=== PATIENT | female | born 1990 | race Caucasian/White ===

== ENCOUNTER 2023-03-07 10:55 | Outpatient (CLI) | payer OTHER, SELFPAY ==
--- NOTE | 2023-03-07 11:00 | CRLHL7_ITS ---
For Patients: As a result of the Cures Act, medical imaging exams and procedure reports are released immediately into your electronic medical record. You may view this report before your referring provider. If you have questions, please contact your health care provider. INDICATION: First trimester scan, establish dates. COMPARISON: None. TECHNIQUE: Real-time medina-scale imaging of the pelvis was performed. FINDINGS: Sonographic imaging demonstrates a single living intrauterine gestation. The embryo demonstrates a regular cardiac rate measuring 159 beats per minute. The embryo`s crown-rump length measurement of 2.1 cm corresponds to a gestational age of 8 weeks 5 days with a sonographic due date of 10/12/2023. There is a normal-appearing yolk sac. There are no gross abnormalities noted within the embryo at this early state of development. The gestational sac has a normal appearance. There is an inferior perigestational hemorrhage measuring 15 x 4 x 5 millimeters. The amount of fluid within the sac appears appropriate for gestational age. The cervix is closed. The myometrium appears normal. The ovaries are of normal size. Corpus luteal cyst right ovary. Simple cyst left ovary. There are no suspicious fluid collections noted in the cul-de-sac. IMPRESSION: Single living intrauterine with sonographic gestational age 8 weeks 5 days and sonographic due date 10/12/2023. Lower uterine segment subchorionic hemorrhage measuring 1.5 x 0.4 x 0.5 cm. Dictated by Lev Bear MD @ 03/07/2023 1:15:44 PM (Electronically Signed)
== END 2023-03-07 10:56 | disposition home or self-care (01) ==
LOC: US 10:56
PROVIDERS: Visit Provider Physician Assistant
DX: Z34.91 Encounter for supervision of normal pregnancy, unspecified, first trimester (principal); O20.9 Hemorrhage in early pregnancy, unspecified; Z3A.08 8 weeks gestation of pregnancy
CPT/HCPCS: 76817; 86592; 86703; 86704; 86706; 86762; 86787; 86803; 86850; 86900; 86901; 87086; 87340; 87491; 87591

== ENCOUNTER 2023-07-23 08:35 | Outpatient (CLI) | payer OTHER, SELFPAY | END 2023-07-23 08:36 | disposition home or self-care (01) | LOC: NFLDREF 08-07 19:16 | PROVIDERS: Visit Provider Advanced Practice Midwife | DX: Z34.03 Encounter for supervision of normal first pregnancy, third trimester (principal) | CPT/HCPCS: 86592 ==

== ENCOUNTER 2023-07-27 08:35 | Outpatient (CLI) | payer OTHER, SELFPAY | END 2023-07-27 08:36 | disposition home or self-care (01) | LOC: NFLDREF 07-31 20:48 | PROVIDERS: Visit Provider Advanced Practice Midwife | DX: R73.09 Other abnormal glucose (principal) | CPT/HCPCS: 82951; 82952 ==

== ENCOUNTER 2023-08-17 07:11 | Outpatient (CLI) | payer OTHER, SELFPAY ==
--- NOTE | 2023-08-17 07:15 | CRLHL7_ITS ---
For Patients: As a result of the Century Cures Act, medical imaging exams and procedure reports are released immediately into your electronic medical record. You may view this report before your referring provider. If you have questions, please contact your health care provider. INDICATION: Third trimester scan, evaluate growth. COMPARISON: 03/07/2023. No other priors available. TECHNIQUE: Real time medina scale imaging of the fetus was performed. FINDINGS: Sonographic imaging demonstrates a single living intrauterine gestation. Fetus demonstrates a regular cardiac rate of 142 beats per minute. Fetus has a vertex position. The placenta lies anteriorly. Amniotic fluid volume appears normal and there is a single deepest vertical pocket: 7.5 cm. The estimated weight is 1780gm which lies at the 24th %. BPD 63rd percentile. HC 81st percentile. AC is 23rd percentile. FL 12th percentile. The HC/AC ratio measures 1.15 range (0.96-1.13). No choroid plexus cyst. IMPRESSION: Sonographic gestational age 32 weeks 2 days and a sonographic due date 10/10/2023. Good correlation with dates. Normal interval growth. Estimated weight 24th percentile. Abdominal circumference 23rd percentile. Dictated by Lev Bear MD @ 08/19/2023 6:44:37 AM (Electronically Signed)
== END 2023-08-17 07:12 | disposition home or self-care (01) ==
LOC: US 07:12
PROVIDERS: Visit Provider Advanced Practice Midwife
DX: Z34.93 Encounter for supervision of normal pregnancy, unspecified, third trimester (principal); Z3A.32 32 weeks gestation of pregnancy
CPT/HCPCS: 76816

== ENCOUNTER 2023-09-14 13:29 | Outpatient (CLI) | payer OTHER, SELFPAY | END 2023-09-14 13:30 | disposition home or self-care (01) | LOC: NFLDREF 09-17 10:21 | PROVIDERS: Visit Provider Advanced Practice Midwife | DX: Z34.93 Encounter for supervision of normal pregnancy, unspecified, third trimester (principal); Z3A.36 36 weeks gestation of pregnancy | CPT/HCPCS: 87081; 87653 ==

== ENCOUNTER 2023-09-23 04:03 | Inpatient (IN) | payer OTHER, SELFPAY ==
[2023-09-23] VITALS (20 sets, daily range): BP systolic 117–134; BP diastolic 69–78; PULSE 70–95; RESP 16; TEMP 36.4–37; O2SAT 95; BMI 32.5
[2023-09-23 04:56] LABS: Amnisure Rom* POSITIVE
--- NOTE | 2023-09-23 07:24 | P.LDBA_ITS ---
Subjective History of Present Illness Date Seen: 09/23/23 Narrative: Augustin is being admitted to Labor and Delivery for SROM at 0230 on 09/23/23, confirmed by [facility] on admission. She is a 33 year old at 37.2 weeks gestation. Her full history and physical was dictated by Dr. Hartman on 09/21/23. Please see this for details. She is currently comfortable feeling only occasional tightening, continues to leak small amounts of clear fluid. Specific Issues/Plans : Ant 1. 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 Immunology (did not accept referral) and [facility] referral sent. [facility] appointment 05/15 for consult and Level II: No concerns, actively treat infections during Level II: SIUP, Bilateral choroid plexus cyst, no other aneuploidy markers visualized. Anterior placenta. Normal amniotic fluid. Normal growth consistent gestational age. Consider consult for further work-up/evaluation if patient desires. 2. Genital warts. Have been persistent despite treatment in the past. 3. Hx anxiety. 4. Bilateral choroid plexus cyst (3 mm left, 2 mm right) No follow-up needed Growth US at 32 weeks: EFW 32%ile, no cyst vistualized 5. Failed 1hr GTT 148. Passed all 3 hour values COVID: declined 03/07/2023 Flu: declined 03/07/2023 TDAP: 08/03/2023 32wk Mental Health: 34wk Hgb:13.1 OB - Problem Based A/P Additional Plan (1) SROM (spontaneous rupture of membranes): Status: Acute (2) 37 weeks gestation of : Status: Acute Plan Assessment:?? at 37.2 weeks gestation?? GBS negative? Patient is not in labor at this time?? Labor type: SROM without onset of painful contractions? Category 1 FHR pattern.? complicated by: IgA deficiency Genital warts, persistent despite treatment in past Hx anxiety Failed 1 hr GTT, passed 3hr GTT Plan:?? * ?Admit to L & D? * IV access: NA a this time * Monitoring per policy: intermittent? * Candidate for analgesia of choice.? Planning unmedicated or nitrous oxide for pain management * Desires waterbirth.? Consent signed and Hep C negative * Expectant management at this time Reviewed risks and benefits of no intervention at this time. Plan to reevaluate labor progress around 12 hrs post rupture unless change in labor or concerns before this time.? * Patient encouraged to reposition and ambulate to promote physiologic labor and . * Anticipate ? Delivery/Labor/Induction Plan Plan: expectant management OB Exam Physical Exam Vital signs: Temp Pulse BP Pulse Ox 98.6 F 85 120/73 95 09/23/23 04:09 09/23/23 07:19 09/23/23 07:19 09/23/23 04:09 Narrative: Vitals Reviewed Constitutional:? Alert and oriented x3 HEENT:? Normocephalic, atraumatic Neck:? Supple Lungs:? Clear to auscultation bilaterally Heart:? Regular rate and rhythm, no murmur, rub or gallop Abdomen:? Soft, nontender, and gravid. Vertex by Darell's, confirmed with cervical exam. Extremities:? No edema or erythema Cervix: 4 cm/60%/-3 station/vertex per RN NST: 145 bpm/moderate variability/+accelerations/-decelerations/rare mild contractions Detailed Labor and Delivery Exam Patient Gravid: Yes
--- NOTE | 2023-09-23 14:17 | PM.OBPNL ---
Subjective Date Seen: 09/23/23 Narrative: Augustin is feeling occasional mild contractions, she continues to leak clear fluid. Discussed R/B/A of continuing to wait for labor, pumping to try to stimulate labor or starting Pitocin. She would like to try pumping at this time and then may consider Pitocin. She remains afebrile. Objective Exam: VSS, afebrile General Appearance:? Calm, cooperative. ?No acute distress. ? Psychiatric Exam: Alert and oriented, appropriate affect Abdomen: Gravid Ctx: ?Q 3-5 min apart. ?Mild ? ? FHTs: ?Baseline: 135. ? ? Variability: modereate. ?Accels: +. ? ?Decels: ?-. SVE: deferred at this time Membranes: ?SROM X 12 hours Vital Signs: Last Vital Signs Temp 98 F 09/23/23 14:00 Pulse 85 09/23/23 14:03 Resp 16 09/23/23 13:12 BP 117/69 09/23/23 14:03 Pulse Ox 95 09/23/23 04:09 Plan Plan: Assessment:?? at 37.2 weeks gestation?? GBS neg Patient is not in labor at this time? Labor type: SROM without onset of contractions Category 1 FHR pattern.? complicated by: IgA deficiency Genital warts, persistent despite treatment in past Hx anxiety Failed 1 hr GTT, passed 3hr GTT Labor complicated by: SROM without onset of contractions? Plan:?? Pt prefers to pump intermittently to try to stimulate labor. Reviewed IV Pitocin risks and benefits, pt is open to use at later time if pumping is ineffective Continue with routine intrapartum cares as ordered.?? Patient encouraged to move and change positions to promote physiologic labor and .?? Nonpharmacologic comfort measures per patient preference. Candidate for analgesia of choice if desired. Patient planning waterbirth Anticipate progress to NVD. ?
[2023-09-23] MEDS: LACTATED RINGERS 1000 ML 1,000 ML 125 ML IV (16:51)
[2023-09-23] MEDS: OXYTOCIN 30 unit/500 ML in NS 30 UNIT/500 ML BAG IVPB (16:52)
--- NOTE | 2023-09-23 20:05 | PM.OBPNL ---
Subjective Date Seen: 09/23/23 Narrative: ?Augustin is coping well with labor pain/contractions, she states she can feel them more at this time. She is not breathing through contractions and rates some 3-4/10. She was started on IV Pitocin per protocol around 1700. ?Ant is with her for support. ? Objective Exam: VSS, afebrile General Appearance:? Calm, cooperative. ?No acute distress. ? Psychiatric Exam: Alert and oriented, appropriate affect Abdomen: Gravid Ctx: ?Q 3 min apart. ?Mild ? ? FHTs: ?Baseline: 145. ? ? Variability: moderate. ?Accels: +. ? ?Decels: ?-. SVE: deferred Membranes: ?SROM ? X 17 hours Vital Signs: Last Vital Signs Temp 97.8 F 09/23/23 19:46 Pulse 77 09/23/23 19:46 Resp 16 09/23/23 18:58 BP 119/69 09/23/23 19:46 Pulse Ox 95 09/23/23 04:09 Plan Plan: Assessment:?? at 37.2 gestation?? GBS neg Patient is currently comfortable with mild contractions?? Labor type: Augmented, Early labor? Category 1 FHR pattern.? complicated by: IgA deficiency Genital warts, persistent despite treatment in past Hx anxiety Failed 1 hr GTT, passed 3hr GTT Labor complicated by: SROM without onset of contractions? Plan:?? Continue labor augmentation with IV Pitocin per protocol Continue with routine intrapartum cares as ordered.?? Patient encouraged to move and change positions to promote physiologic labor and .?? Nonpharmacologic comfort measures per patient preference. Candidate for analgesia of choice if desired. Patient planning waterbirth Anticipate progress to NVD. ?
[2023-09-24] VITALS (16 sets, daily range): BP systolic 100–132; BP diastolic 58–95; PULSE 71–108; RESP 16–18; TEMP 36.6–37; O2SAT 98–99
[2023-09-24] MEDS: LACTATED RINGERS 1000 ML 1,000 ML 125 ML IV (00:03)
--- NOTE | 2023-09-24 00:53 | PM.OBPNL ---
Subjective Date Seen: 09/24/23 Narrative: ?Augustin is coping well with labor pain/contractions. ?Ant is with her for support. ?She would like to continue with breathing, repositioning and relaxation for comfort and pain management.?She has been more uncomfortable with contractions for the last 1.5 hours rating contractions a 8/10. Requested a cervical exam, she was 5/-2 with forebag. Presented the option of rupturing this now or continuing to labor without rupturing. She continues on IV Pitocin per protocol. They discussed this and decided on rupture. Small amount of clear fluid after rupture of forebag, cervix then a stretchy 6cm. She requested to try water therapy at this time planning on getting into the smaller tub now. Objective Exam: VSS, afebrile General Appearance:? Calm, cooperative. ?No acute distress. ? Psychiatric Exam: Alert and oriented, appropriate affect Abdomen: Gravid Ctx: ?Q 2-3 min apart. ? ?Moderate ? FHTs: ?Baseline: 140. ? ? Variability: moderate. ?Accels: +. ? ?Decels: ?-. SVE: /-2 Membranes: ?SROM X 22.5 hours Vital Signs: Last Vital Signs Temp 98 F 09/23/23 22:53 Pulse 87 09/23/23 22:53 Resp 16 09/23/23 18:58 BP 133/73 09/23/23 22:53 Pulse Ox 95 09/23/23 04:09 Contractions Pitocin Rate (mU/min): 12 Assessment Amniotic Membrane Status: SROM Plan Plan: Assessment:?? at 37.2 gestation?? GBS neg Patient is currently comfortable with mild contractions?? Labor type: Augmented, Early labor? Category 1 FHR pattern.? complicated by: IgA deficiency Genital warts, persistent despite treatment in past Hx anxiety Failed 1 hr GTT, passed 3hr GTT Labor complicated by: SROM without onset of contractions? Plan:?? Rupture of forebag performed with patient consent for clear fluid Continue IV Pitocin per protocol. Pt to get into smaller tub at this time Continue with routine intrapartum cares as ordered.?? Patient encouraged to move and change positions to promote physiologic labor and .?? Nonpharmacologic comfort measures per patient preference. Candidate for analgesia of choice if desired. Patient planning waterbirth Anticipate progress to NVD. ?
[2023-09-24] MEDS: OXYTOCIN 30 unit/500 ML in NS 30 UNIT/500 ML BAG 300 UNIT IVPB (04:45)
--- NOTE | 2023-09-24 06:35 | P.GYNPRC_ITS ---
Procedure Note Time Seen by Provider: 06:00 Date of procedure: 09/24/23 Will [facility] bill your pro fee for this procedure?: Yes Pre-op diagnosis: 3rd degree extension of RML episiotomy s/p vaginal delivery. Post-op diagnosis: 2nd degree RML episiotomy with right vaginal sulcus extension. Procedure: Repair of 2nd degree RML episiotomy with right vaginal sulcus extension. Excision of vulvar skin tag. Anesthesia: local (25 mL 1% lidocaine plain) Complications: None. Surgeon: Dia Varela MD Estimated blood loss (mL): 10 (for the repair) Pathology: specimen obtained, sent to pathology (vulvar skin tag) Condition: stable Disposition: floor Findings: 2nd degree RML episiotomy with right vaginal sulcus extension. Procedure Description: Verbal consent obtained for exam and repair. Sibley of vaginal sulcus tear identified and vaginal mucosa reapproximated in a running locking fashion with 3-0 chromic. The muscles over the sphincter capsule were reapproximated separately with 2 interrupted sutures of 3-0 vicryl to restore normal anatomic configuration. The remainder of the repair was completed in the usual fashion with the 3-0 chromic in the usual layered fashion. The right vulvar skin tag was excised with scissors and the defect closed with 3-0 chromic. The patient tolerated the procedure well. Sponge and needle counts were correct.
--- NOTE | 2023-09-24 06:35 | W.PM.OBVAGDE ---
OB Procedure Vag Delivery Mother Details Mother Details: The patient is a 33 year-old, 1, Para 0, admitted on 09/23/23 at 37.2 weeks gestation with SROM at home on 09/23/23 at 0230. : 1 Para: 1 Weeks Gestation: 37.3 Admission Date: 09/23/23 Additional Details Amniotic Membrane Status: SROM Amniotic Membrane Rupture Date: 09/23/23 Amniotic Membrane Rupture Time: 02:30 Amniotic Membrane Fluid Description: Clear Analgesia/Anesthesia Type: Local (for repair) and Nitrous Oxide Waterbirth: No Pitcoin: Yes Intrapartal Events: Labor Augmentation Delivery augmentation: rupture of membranes Labor Onset: 00:49 Complete: 02:35 Pushin:40 Heart: heart tones during second stage were continuously monitored Category 2, with a period of time where the monitor was not recording FHR but RN and CNM both were able to audibly hear FHR 145-155. The last 20 minutes of pushing FHR bettye to 180-200's with a deceleration to the 60's just before delivery. Delivery Details Delivery Date: 09/24/23 Delivery Time: 04:43 Route of delivery: Infant Gender: Female Infant Viability: Alive; Heart Rate Present Position at Delivery: OA Delivery Details: 33 y.o?at 37.3 weeks.? Augustin was admitted with SROM since 09/23/23 at 0230. She was not feeling contractions other than occasional tightening and leaking clear fluid. She preferred to wait for labor initially then after 16 plus hours since SROM she consented to IV Pitocin per protocol. After approximately 4 hours on IV Pitocin she had not made significant change and was found to have a forebag. She consented to rupture of forebag which was then performed for clear fluid. She progressed normally and then requested to get in the waterbirth tub, recommended she use her regular tub until having stronger pressure in pelvis or feeling like pushing. She entered the tub around 0230 and began to feel like pushing. She became complete at 0235.??She pushed in multiple positions effectively.??? At approximately 0420 FHR was noted to be 180 and there was difficulty tracing. Augustin was pushing well but there was a thick band of perineal tissue which was preventing the head to pass. Decision was made to get out of the tub and monitor was adjusted showing FHR 180-200. Recommended an episiotomy at this time for concerns for well being. Patient consented and this was performed after injection 1% lidocaine to the area, she pushed well with the next contraction but episiotomy not deep enough so additional cut made slightly deeper. The FHR then dropped to the 60's and the patient was instructed to push and she delivered the head. Body delivered without difficulty. ? Spontaneous vaginal delivery at 0443 of?a viable? female .??Delivered in vertex OA position.??Shoulders delivered easily.? Spontaneous cry noted.?? placed on maternal abdomen.??Cord?was clamped and cut after a 5+ minute delay.??Nose and mouth were bulb suctioned.? Shoulder dystocia: no? Nuchal cord: no? Meconium stained?fluid: no? Water : no? ? ? 6 at 1 minute and 9 at 5 minutes.? Weight is pending. ? Placenta delivered spontaneously and?complete?at 0448 with a?3 vessel?cord.?? Bleeding controlled with fundal massage and?pitocin?for AMTSL.? ? Mother and were stable after delivery.? ? Lacerations:? There was a deep sulcal vaginal tear on right extending from the episiotomy site. It appeared that the tear was exposing the anal capsule and potentially torn. Dr. Varela was requested to come to the bedside and evaluate. She did come and felt the capsule was not torn just exposed. She then did the repair and removed a skin tag per patient request. See her note for details. ? Bleeding?post delivery?was: moderate. ?The fundus was firm to palpation.? Blood loss: 300?mL.? Blood loss measurement type: QBL? ? ? Sponge,?lap?and needles counts are correct.? Mother and infant were stable after delivery.? 1 Minute Interval Total Score: 6 5 Minute Interval Total Score: 9 Additional Details Shoulder Dystocia: No Placenta Delivery Time: 04:48 Placental Delivery Description: Spontaneous Delivery repair: Vicryl and Chromic (3.0) Procedure Done: Global Blood Loss: 300 Laceration: Vaginal - 2nd Degree (right sulcal tear) Episiotomy Description: Right Mediolateral Blood Loss Measurement Type: QBL Bakri Used: No Sponge/Need Count Correct: Yes Cord Vessel Description: 3 Vessels Event Summary Status: Mother and infant were stable after delivery. Disposition: floor
[2023-09-24] MEDS: IBUPROFEN 600 MG TABLET PO ×3 (07:33→19:43)
[2023-09-24] MEDS: DOCUSATE SODIUM 100 MG CAPSULE PO (07:33)
[2023-09-24] MEDS: ACETAMINOPHEN 500 MG TABLET 1000 MG PO ×3 (10:17→22:46)
[2023-09-25 01:00] VITALS: BP 102/68; PULSE 93; RESP 16; TEMP 36.6; O2SAT 98
[2023-09-25] MEDS: IBUPROFEN 600 MG TABLET PO ×4 (01:42→20:20)
[2023-09-25] MEDS: ACETAMINOPHEN 500 MG TABLET 1000 MG PO ×4 (05:11→23:22)
[2023-09-25 05:21] VITALS: BP 110/70; PULSE 82; RESP 14; TEMP 36.6; O2SAT 96
[2023-09-25] MEDS: DOCUSATE SODIUM 100 MG CAPSULE PO (08:15)
[2023-09-25 08:17] VITALS: BP 106/68; PULSE 73; RESP 16; TEMP 36.9; O2SAT 97
--- NOTE | 2023-09-25 10:52 | PM.OBPNVD1 ---
OB - PN:Subj Subjective Date Seen: 09/25/23 Narrative: Augustin is a 33 y.o. who was admitted to L & D for SROM.? She had an uncomplicated NVD.? ?? The patient feels well.? The pain is well controlled with current medications.? She has no new complaints.? She is breast feeding and reports things are going well.? the patient has done well.? Vitals have been stable.? She has remained afebrile.? Has a good appetite, is tolerating a general diet.? She is voiding without difficulty.? She is passing gas and has not had a bowel movement.? She is ambulating and denies any dizziness.? Has Small amount of rubra lochia.?She is planning to stay another night in the hospital. OB - PN: Obj Exam Physical Exam: Vital signs: Temp Pulse Resp BP Pulse Ox O2 Del Method 98.4 F 73 16 106/68 97 Room Air 09/25/23 08:17 09/25/23 08:17 09/25/23 08:17 09/25/23 08:17 09/25/23 08:17 09/25/23 08:17 Narrative: GENERAL APPEARANCE:? normal affect, alert, no distress? MOOD:? appropriate? HEENT: normocephalic, neck supple, full ROM? CHEST:? Symmetrical chest wall movement.? Normal respiratory effort.? Clear to auscultation ? HEART:? regular rate and rhythm? ABDOMEN:? soft, non-tender. Uterine fundus is firm, at Umbilicus, Midline and is appropriate for the stage of recovery.? Bowel sounds present.? PERINEUM:? mild edema of the perineum, there is a 2nd degree laceration that is healing well.? EXTREMITIES:? normal and 1+ edema? OB - PN: A/P Delivery Assessment and Plan (1) care and examination immediately after delivery: Status: Acute (2) Lactating mother: Status: Acute (3) SROM (spontaneous rupture of membranes): Status: Acute (4) 37 weeks gestation of : Status: Acute Plan day: 1 Plan: routine care Comments: G 1 P 1 status post uncomplicated NVD??? 1.? Continue route PP cares? 2.? .? May see if desired? 3.? Anticipate discharge home tomorrow?
[2023-09-25 15:45] VITALS: BP 113/67; PULSE 89; RESP 16; TEMP 37.1; O2SAT 98
[2023-09-25 23:49] VITALS: BP 118/71; PULSE 82; RESP 16; TEMP 36.6; O2SAT 96
[2023-09-26] MEDS: IBUPROFEN 600 MG TABLET PO ×2 (02:13→08:23)
[2023-09-26] MEDS: ACETAMINOPHEN 500 MG TABLET 1000 MG PO ×2 (06:22→12:48)
--- NOTE | 2023-09-26 08:05 | PM.OBDSVD1 ---
DS: Providers Provider Date Seen: 09/26/23 Date of admission: 09/23/23 04:03 Primary care physician: Not a Local Provider Admitting Clinician: Paresh Maharaj CNM Attending Physician on discharge: Paresh Maharaj CNM Date of Discharge: 09/26/23 DS: Diagnosis Discharge Diagnosis (1) Lactating mother: Status: Acute (2) care following vaginal delivery: Status: Acute Exam Narrative: Exam Narrative: GENERAL APPEARANCE:? normal affect, alert, no distress? MOOD:? appropriate? CHEST:? clear to auscultation and percussion? HEART:? regular rate and rhythm? ABDOMEN:? soft, non-tender the uterine fundus is U/2 and is appropriate for the stage of recovery. ? PERINEUM:? mild edema of the perineum, there is a RML and 2nd degree extension that is healing well.? EXTREMITIES:? normal and no edema? Const: Vital Signs, click to edit/add: Vital Signs - 24 hr 09/25/23 08:17 09/25/23 15:45 09/25/23 23:49 Temperature 98.4 F 98.8 F 97.8 F Pulse Rate [Pulse Oximeter] 73 89 82 Respiratory Rate 16 16 16 Blood Pressure [Ri ght Arm] 106/68 113/67 118/71 Pulse Oximetry 97 98 96 Oxygen Delivery Me thod Room Air Room Air Room Air Documenting provider has reviewed patient's vital signs: yes OB - DS: Summary Hospital Course Hospital Course: Augustin is a 33 year old G 1 P 1 at 37.3 weeks gestation that was admitted to the Center on 09/23/23 for SROM. She had a vaginal delivery that was complicated by a episiotomy for distress. She delivered a viable female . She is breast feeding and feels things have been going very well. the patient has done well. She is planning condoms for contraception. Peripartum Data delivery method: Vaginal Laceration description: Perineal - 2nd Degree Episiotomy description: Right Mediolateral complications: none Gender: Female Infant Discharge Plan: Home Status at Discharge Functional status at discharge: independent ambulation Overall status at discharge: patient is progressing back to baseline Time Spent with Patient Time attestation: Total time spent providing and/or coordinating discharge services: Discharge Plan Discharge Disposition: Home, Self-Care Date of Admission: 09/23/23 04:03 Attending Provider on Discharge: Melany Unger Primary Care Provider: Provider,Not a Local Condition: Stable Anticipated Discharge Date/Time: 09/26/23 09:00 Discharge Medications: New docusate sodium 100 mg Capsule 100 mg PO DAILY Qty: 90 0RF Rx Instructions: Take 1-2 tablets daily as needed for constipation. ibuprofen 600 mg Tablet 600 mg PO Q6H PRNQty: 30 0RF Continued Adult 50 Plus Probiotic 4 billion cell capsule 4,000 mmu cells PO QDAY magnesium 250 mg tablet 250 mg PO QDAY Classic 28 mg iron- 800 mcg tablet 1 tab PO DAILY Discharge Orders: Discharge Order (Routine); Ordered 09/26/23 Ordered By: Melany Unger Consulting provider completed their portion of the discharge: Yes Patient Education: OB Vaginal/Breast Feeding Additional Instructions: Discharge instructions were reviewed with the patient including signs and symptoms of infection and home going medications.? Lifting Restrictions: 20 pounds for 6? weeks? ?? Do not drive while taking narcotic pain meds.? Off Work or School for 6 weeks.? ?? Symptoms to report to doctor:? -Bleeding that saturates more than one pad per hour? -Passing clots larger than the size of a golf ball? -Pain not relieved by prescribed medication? -Fever above 100.4 degrees Fahrenheit? -A foul vaginal odor? -Difficulty in emotions, mood and functions? -Thoughts of hurting yourself and/or ? -Painful, reddened area in your breast? -Any drainage, redness or tenderness in your IV/epidural site? -Severe headache that doesn't improve after taking medications? -Changes in vision, including temporary loss of vision, blurred vision, and/or light sensitivity? -Upper abdominal pain (usually under ribs on the right side)? -Decrease in urination or painful, frequent urinating? -Chest pain? -Shortness of breath? -Tenderness or pain with redness and/swelling in the calf(s) of your leg? ?? Follow Up in clinic in 2 and 6 weeks.? ?? consultation services are available to all mothers and babies for the first year after delivery.? To make an appointment, please call [phone].? Activity Level: Activity as Tolerated Discharge Diet: Regular Follow Up Appointments: [facility] [Provider Group] Provider,Not a Local [Primary Care Provider] - Forms: MyHealth Info Instructions
[2023-09-26 08:17] VITALS: BP 111/70; PULSE 82; RESP 18; O2SAT 98
[2023-09-26] MEDS: DOCUSATE SODIUM 100 MG CAPSULE PO (11:13)
== END 2023-09-26 13:09 | disposition home or self-care (01) | DRG 806 ==
LOC: OB OUT 08:12 → OB 09-26 08:06
PROVIDERS: Admitting Provider Advanced Practice Midwife; Visit Provider Advanced Practice Midwife
DX: O42.02 Full-term premature rupture of membranes, onset of labor within 24 hours of rupture (principal); D80.2 Selective deficiency of immunoglobulin A [IgA]; Z37.0 Single live birth; O98.32 Other infections with a predominantly sexual mode of transmission complicating childbirth; O70.1 Second degree perineal laceration during delivery; O76 Abnormality in fetal heart rate and rhythm complicating labor and delivery; O99.892 Other specified diseases and conditions complicating childbirth; A63.0 Anogenital (venereal) warts; Z3A.37 37 weeks gestation of pregnancy
CPT/HCPCS: 84112; 85025; 86592; 86850; 86900; 86901; 88304; G0463; A9270; J7120

== ENCOUNTER 2024-03-14 09:30 | Outpatient (RCR) | payer OTHER, SELFPAY | END 2024-06-16 15:55 | disposition home or self-care (01) | PROVIDERS: Visit Provider Midwife | DX: M62.89 Other specified disorders of muscle (principal); Z39.2 Encounter for routine postpartum follow-up; N94.2 Vaginismus; R27.8 Other lack of coordination; Z51.89 Encounter for other specified aftercare | CPT/HCPCS: 97110; 97112; 97140; 97161; 97535 ==

== ENCOUNTER 2024-05-09 09:37 | Outpatient (CLI) | payer OTHER, SELFPAY ==
--- NOTE | 2024-05-09 12:15 | P.LACCB_ITS ---
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) Gluten intolerance ?K90.41 - Non-celiac gluten sensitivity (ICD-10) Anxiety ?F41.9 - Anxiety disorder, unspecified (ICD-10) Work Plans: currently working from home, 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 Delivery Information Gestational Weight For Age: AGA Weight: 2.84 kg Discharge Weight: 2.69 kg Baby's Information Baby's Age at Visit: 7.5 months Baby's Provider or Clinic: [facility] Jaundice: No Past Experience Past Experience: No Current Frequency of Day Feedings: every 2-3 hours Frequency of Night Feedings: 10-11 hr sleep stretch Both Breasts: Yes Suck: strong Latch: comfortable Length of Time: 5-7 minutes on ea side Goals: 1 year Pumping Pumping: Yes Quantity Pumped: less than 1 oz total between both breasts after AM feeding, no other pumps Supplementing EBM Supplement: No Formula Supplement: No Baby Elimination Number of Wet Diapers a Day: ea feeding Number of BM a Day: sometimes 2-3 days betweens BMs, soft when she has one Breast/Nipple Condition Breast Information: Breasts are symmetrical with rounded lower quadrants, intramammary distance is less than 1.5 inches. No erythema. Nipples are supple, everted prior to feeding. No pain. Mom noticed a drop in her supply around 3.5-4 mos when baby started sleeping longer stretches and her menstrual cycle returned. Breast Shape: Round Engorgement: No Maternal Nipple Condition - Left: Common Nipple Maternal Nipple Condition - Right: Common Nipple Sore Nipples: No Baby Assessment Skin: Normal Tongue/frenulum: Normal/elastic Palate: Average Lips: Relaxed and Symmetrical Jaw Alignment: Symmetrical Mucosa: [place], moist Onsite Observation Pre-Feed weight: 6.814 kg Post-Feed weight: 6.896 kg Milk Transferred (mL): 82 Position: Cross cradle Attachment/latch-on achieved: Easily Suck pattern: Suck burst and normal rest Swallow: Audible, consistent Behavior following feed: Alert, content (very distracted during feeding; mom states not uncommon but more distracted than usual being here) Pre-Nursing Left Nipple: Within Normal Limits Pre-Nursing Right Nipple: Within Normal Limits Post-Nursing Left Nipple: Within Normal Limits Post-Nursing Right Nipple: Within Normal Limits Assessments/Interventions Assessments/Interventions: observation Baby latches easily to both breasts in the cross cradle position Babe does pull on and off the breast some and is more on the nipple than the breast; discussed trying to hold baby closer to mom's chest to maintain a deeper latch. This would likely be more comfortable for mom and allow for more milk transfer for baby. If baby has gotten used to pulling off, this might take some time for her to relearn the deeper latch. Discussed distracted nursing as well; may need quiet space, minimal distractions to keep engaged in feedings. Education provided: Need for frequent stimulation/milk removal (Discussed long sleep stretch at night is possibly compromising her milk supply) and Pumping for milk management (Recom cont pump after AM feeding; add in pumping after bedtime feed and before mom goes to bed for 2 weeks to see if can increase supply. Disc hand expression after pumping may elicit more milk) Handouts Provided: [employer] handout - How to pump for milk given and reviewed Measured for flange size: nipples 15mm>>recom flange size 17-19mm Feeding Plan: continue feeding every 2-3 hours during the day add in 2 pumpings to try and increase supply; monitor for 2 weeks and call with info for follow up plan discussed typical routine for pumping while baby at daycare, typically every 3-4 hours based on last fed, drop off and supervisor opening and picking time and other meals during the day expect 3-4 oz/bottle feeding at daycare Time Spent Time spent with patient (min): 90 (reviewing EMR and face to face with mom/baby) Meds Home Medications and Allergies Home Medications ?Medication ?Instructions ?Recorded ?Confirmed ?Type vits no.126-ferrous fum 1 tab PO DAILY 03/07/23 10/05/23 History 28 mg iron-folic acid 800 mcg tablet (Classic ) lactobacillus combination no.9 4 4,000 mmu cells PO QDAY 07/23/23 10/05/23 History billion cell capsule (Adult 50 Plus Probiotic) magnesium 250 mg tablet 250 mg PO QDAY 07/23/23 10/05/23 History Allergies Allergy/AdvReac Type Severity Reaction Status Date / Time wheat Allergy Severe Gastrointestinal Verified 10/05/23 11:33 Upset gluten Allergy Severe Gastrointestinal Uncoded 10/05/23 11:33 Upset oat Allergy Severe Gastrointestinal Uncoded 10/05/23 11:33 Upset
== END 2024-05-09 09:38 | disposition home or self-care (01) ==
LOC: OB LAC 09:39
PROVIDERS: Visit Provider Obstetrics & Gynecology
DX: Z39.1 Encounter for care and examination of lactating mother (principal)
CPT/HCPCS: G0463

== ENCOUNTER 2024-11-21 14:03 | Outpatient (CLI) | payer OTHER, SELFPAY | END 2024-11-21 14:04 | disposition home or self-care (01) | LOC: NFLDREF 14:03 | PROVIDERS: Visit Provider Advanced Practice Midwife | DX: F41.9 Anxiety disorder, unspecified (principal); D22.9 Melanocytic nevi, unspecified | CPT/HCPCS: 84443 ==